=== PATIENT | female | born 1985 | race Asian ===

== ENCOUNTER 2019-09-14 10:28 | Emergency (ER) | payer MEDICAID ==
[~2019-09-14] VITALS: Ht 157.5 cm; Wt 67.1 kg
[2019-09-14 11:27] VITALS: Ht 157.5 cm; Wt 67.1 kg
[2019-09-14 13:20] VITALS: BP 133/91
== END 2019-09-14 13:47 | disposition home or self-care (01) ==
LOC: ED 10:28
DX: F41.9 Anxiety disorder, unspecified (principal); I10 Essential (primary) hypertension; M25.561 Pain in right knee; G89.29 Other chronic pain